=== PATIENT | male | born 1965 | race Caucasian/White ===

== ENCOUNTER → 2018-02-04 | Outpatient (CLI) | payer OTHER ==
[2018-02-04 08:51] LABS: Basophils % (A) 0 %; Eosinophils # (A) 0.1 k/uL (0-0.7); Eosinophils % (A) 1 %; HGB 15.5 gm/dL (13.0-17.5); Lymphocytes # (A) 1.6 k/uL (1.0-4.8); Lymphocytes % (A) 20 %; MCH 29.7 pg (25.0-35.0); MCHC 33.1 g/dL (31.0-37.0); MCV 89.8 fL (80.0-100.0); Mean Platelet Volume 7.4; Monocytes # (A) 0.4 k/uL (0-1.0); Monocytes % (A) 5 %; Neutrophils # (A) 5.6 k/uL (1.3-7.7); Neutrophils % (A) 72 %; Platelet Count 358 k/uL (150-450); RBC 5.23 m/uL (4.30-5.90); RDW 13.3 % (11.5-15.5); WBC 7.8 k/uL (3.8-10.6)
[2018-02-04 08:55] LABS: Appearance,Urine Clear (Clear); Bilirubin,Urine Negative (Negative); Blood,Urine Small (Negative); Color,Urine Yellow; Glucose,Urine (UA) Negative (Negative); Ketones,Urine Trace (Negative); Leukocyte Esterase,Urine Trace (Negative); Mucus,Urine Many /hpf; Nitrite,Urine Negative (Negative); PH, Urine 5.5 (5.0-8.0); Protein,Urine 1+ (Negative); RBC,Urine <1 /hpf (0-5); Specific Gravity,Urine 1.026 (1.001-1.035); Urobilinogen,Urine <2.0 mg/dL (<2.0); WBC,Urine 4 /hpf (0-5)
[2018-02-04 10:48] LABS: ALT 36 U/L (21-72); AST 25 U/L (17-59); Albumin 4.9 g/dL (3.5-5.0); Alkaline Phosphatase 49 U/L (38-126); Amylase 82 U/L (30-110); Anion Gap 14 mmol/L; Blood Urea Nitrogen 15 mg/dL (9-20); Calcium 9.9 mg/dL (8.4-10.2); Carbon Dioxide 25 mmol/L (22-30); Chloride 103 mmol/L (98-107); Cholesterol 213 mg/dL (<200); Glucose 121 mg/dL (74-99); HDL Cholesterol 82 mg/dL (40-60); LDL Cholesterol,Calculated 108 mg/dL (0-99); Lipase 131 U/L (23-300); Potassium 4.5 mmol/L (3.5-5.1); Sodium 142 mmol/L (137-145); Total Protein 7.3 g/dL (6.3-8.2); Triglycerides 114 mg/dL (<150)
[2018-02-04 11:53] LABS: Prostate Specific Antigen 1.12 ng/mL (0.00-4.00)
[2018-02-04 16:00] LABS: Vitamin D 25 Hydroxy 41.9 ng/mL (30.0-100.0)
[2018-02-04 16:04] LABS: Folate, Serum 16.4 ng/mL
[2018-02-04 17:17] LABS: Hepatitis C IgG Antibody Non-Reactive (Non-Reactive)
[2018-02-04 18:42] LABS: Hemoglobin A1C 5.4 % (4.0-6.0)
== END | disposition home or self-care (01) ==
LOC: LABWHC1 07:58
PROVIDERS: ATTEND Family Medicine
DX: Z00.00 Encounter for general adult medical examination without abnormal findings (principal); R10.9 Unspecified abdominal pain; R53.83 Other fatigue; Z11.59 Encounter for screening for other viral diseases
CPT/HCPCS: 36415; 80053; 80061; 81001; 82150; 82306; 82607; 82746; 83036; 83690; 84153; 84443; 85025; 86803

== ENCOUNTER → 2018-02-14 | Outpatient (CLI) | payer OTHER ==
--- NOTE | 2018-02-14 08:09 | US ---
EXAMINATION TYPE: US abdomen complete DATE OF EXAM: 02/14/2018 COMPARISON: NONE CLINICAL HISTORY: R10.9 ABD PAIN. Abdominal pain but states its getting better EXAM MEASUREMENTS: Liver Length: 15.4 cm Gallbladder Wall: 0.2 cm CBD: 0.4 cm Spleen: 9.7 cm Right Kidney: 10.6 x 4.0 x 4.3 cm Left Kidney: 9.9 x 4.3 x 4.9 cm Pancreas: wnl Liver: wnl Gallbladder: wnl Evidence for sonographic Pryor's sign: neg CBD: wnl Spleen: wnl Right Kidney: wnl Left Kidney: wnl Upper IVC: wnl Abd Aorta: wnl The visualized liver is homogenous. The intrahepatic portion of the IVC and visualized abdominal aor ta are within normal limits. There is no evidence of cholelithiasis. Common bile duct is unremarkab le. The visualized portions of the pancreas are homogenous. The spleen is unremarkable. Kidneys ar e symmetric and free of hydronephrosis. No renal lesions are seen. IMPRESSION: No suspicious finding is seen to account for patient's symptoms.
== END | disposition home or self-care (01) ==
LOC: RADUSWWP 06:55
PROVIDERS: ATTEND Family Medicine
DX: R10.9 Unspecified abdominal pain (principal)
CPT/HCPCS: 76700

== ENCOUNTER → 2018-05-18 | Outpatient (CLI) | payer OTHER ==
--- NOTE | 2018-05-18 23:33 | CT ---
EXAMINATION TYPE: CT brain wo con DATE OF EXAM: 05/18/2018 HISTORY: Multiple head injuries, unusual thoughts CT DLP: 945.5 mGycm. Automated Exposure Control for Dose Reduction was Utilized. TECHNIQUE: CT scan of the head is performed without contrast. COMPARISON: None. FINDINGS: There is no acute intracranial hemorrhage or midline shift identified. Ventricles and sul ci are within normal limits in size. Slight asymmetry is presumed normal variant. Focus of low attenu ation left frontoparietal superficial white matter axial image 31 is noted, nonspecific. The globes are intact and the visualized sinuses are clear. IMPRESSION: No acute intracranial hemorrhage or midline shift. There is mild nonspecific white fariha er changes most likely on basis of product of chronic small vessel ischemic change in patient of this age.
== END | disposition home or self-care (01) ==
LOC: RADCTMAIN 08:21
PROVIDERS: ATTEND Family Medicine
DX: R90.89 Other abnormal findings on diagnostic imaging of central nervous system (principal); S09.90XA Unspecified injury of head, initial encounter
CPT/HCPCS: 70450

== ENCOUNTER → 2021-01-28 | Outpatient (CLI) | payer OTHER ==
--- NOTE | 2021-01-31 11:29 | PE ---
Nuclear medicine PET/CT HISTORY: Head and neck cancer, subsequent, C 44.42 Patient received 11.1 mCi F-18 FDG intravenously delayed scanning was performed from skull base to th e mid thighs. Localization and attenuation correction CT scan was performed. Correlation to prior nuclear medicine PET/CT 09/14/2020. Small [id number] images obtained through t head and neck Chest and neck: The level the hard palate shows hypermetabolic uptake with SUV 12.2-13.7, there is st reak artifact present at the level of patient's dental work. No evident cervical or supraclavicular a denopathy. There is no evident lung mass. No pleural pericardial effusion. There is no mediastinal, a xillar, or hilar adenopathy. ABDOMEN: No suspicious uptake. No retroperitoneal adenopathy or evident liver mass. Prostate is enlar ged. No suspicious uptake. Osseous structures show no suspicious uptake IMPRESSION: Persistent hypermetabolic uptake involving the region of the hard palate
== END | disposition home or self-care (01) ==
LOC: RADPETMAIN 10:36
PROVIDERS: ATTEND Family Medicine
DX: C76.0 Malignant neoplasm of head, face and neck (principal); N40.0 Benign prostatic hyperplasia without lower urinary tract symptoms
CPT/HCPCS: 78815; A9552

== ENCOUNTER 2022-04-15 08:11 | Emergency (ER) | payer OTHER ==
[2022-04-15 08:18] VITALS: BP 117/77; PULSE 61; RESP 16; TEMP 97.5
[2022-04-15] MEDS ORDERED: KETOROLAC 15 MG/ML 1 ML VIAL IM STA (08:26)
[2022-04-15] MEDS ORDERED: ORPHENADRINE 30 MG/ML 2 ML VIAL IM STA (08:26)
--- NOTE | 2022-04-15 08:32 | ED ---
General Adult HPI - General Chief complaint: Extremity Injury, Upper Stated complaint: rt shoulder Time Seen by Provider: 04/15/22 08:15 Source: patient, RN notes reviewed, old records reviewed Mode of arrival: ambulatory Limitations: no limitations - History of Present Illness Initial comments: This a 57-year-old male who has a past medical history significant for laryngeal cancer. Patient states he's been treated for that currently. Patient states the other day out a week ago he was doing something physical and felt a pop in the upper right back and her since then the pain in that area just next to the scapula hurts him. Patient states he figured he would just let it go and it would go away eventually. Patient states he continues to be very active and physical and the pain is just gotten worse and worse to the point where he is not sleeping at night. Patient states movement definitely makes the pain worse. Patient denies any further injury. - Related Data Previous Rx's Medication Instructions Recorded Cyclobenzaprine [Flexeril] 10 mg PO TID #20 tab 04/15/22 Ketorolac [Toradol] 10 mg PO Q6HR #15 tab 04/15/22 Allergies Allergy/AdvReac Type Severity Reaction Status Date / Time No Known Allergies Allergy Verified 04/15/22 08:18 Review of Systems ROS Statement: Those systems with pertinent positive or pertinent negative responses have been documented in the HPI. ROS Other: All systems not noted in ROS Statement are negative. Past Medical History Past Medical History: Cancer Additional Past Medical History / Comment(s): throat cancer Additional Past Surgical History / Comment(s): throat/neck and 19 lymph nodes removed for throat cancer Past Psychological History: Depression Smoking Status: Never smoker Past Alcohol Use History: None Reported Past Drug Use History: None Reported General Exam - General Exam Comments Initial Comments: GENERAL Patient is well-developed and well-nourished. Patient is in mild distress. EYES Patient's pupils are equal and round. Extraocular motion is intact SKIN Unremarkable NEURO The patient is alert and oriented 3 PYSCH Patient has normal interpersonal interactions. MUSCULOSKELETAL Patient has pain to the medial aspect of the right mid scapula Limitations: no limitations Course Vital Signs 04/15/22 08:12 Temperature 97.5 F L Pulse Rate 61 Respiratory 16 Rate Blood Pressure 117/77 O2 Sat by Pulse 100 Oximetry Medical Decision Making - Medical Decision Making Chest x-ray shows no acute abnormality. 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 Patient received Toradol and Norflex in the emergency department and when I went back and reevaluated the patient patient stated he felt considerably better. Disposition Clinical Impression: Acute thoracic myofascial strain Disposition: HOME SELF-CARE Condition: Good Instructions (If sedation given, give patient instructions): Thoracic Pain (ED) Prescriptions: Cyclobenzaprine [Flexeril] 10 mg PO TID #20 tab Ketorolac [Toradol] 10 mg PO Q6HR #15 tab Is patient prescribed a controlled substance at d/c from ED?: No Referrals: Renard Sanchez MD [Primary Care Provider] - 1-2 days Time of Disposition: 09:16
--- NOTE | 2022-04-15 09:01 | XR ---
EXAMINATION TYPE: XR chest 2V, XR shoulder complete 3 views RT DATE OF EXAM: 04/15/2022 COMPARISON: None HISTORY: 57-year-old male difficulty breathing, shortness of breath, upper back pain TECHNIQUE: PA and lateral views FINDINGS: Chest: Cardiac mediastinal silhouette, aorta, and pulmonary vasculature are within normal limits. Streaky at electasis at the left lower lung. Hyperinflation. No consolidation or pleural effusion. Right shoulder: Mild degenerative spurring at the AC joint. Subacromial space is preserved. There is some narrowing o f the subacromial space on the Grashey view and bony irregularity in the greater tuberosity. No acute fracture, subluxation, or dislocation. IMPRESSION: 1. Chest: Possible underlying COPD. Some strandy atelectasis at the left base but otherwise, no acute process seen. 2. Right shoulder: Mild AC joint OA. There is some bony change at the greater tuberosity that suggest s chronic rotator cuff tendinopathy. If concern for underlying rotator cuff tear, [facility] ultrasound or M RI can be considered. No acute osseous abnormality seen.
== END 2022-04-15 09:20 | disposition home or self-care (01) ==
LOC: EC 08:11
DX: S29.012A Strain of muscle and tendon of back wall of thorax, initial encounter (principal); X58.XXXA Exposure to other specified factors, initial encounter
CPT/HCPCS: 73030; 71046; 99283; 96372; J2360; J1885